=== PATIENT | female | born 1995 | race Caucasian/White ===

== ENCOUNTER 2018-05-25 03:02 | Emergency (ER) | payer OTHER ==
[~2018-05-25] VITALS: Ht 160 cm; Wt 59.0 kg
--- NOTE | ~2018-05-25 | EKG ---
[place], [place] ELECTROCARDIOGRAM REPORT NAME: BRANDEN SAXENA UNIT #: [id number] ROOM: DOCTOR: EPIPHANY DRAFT REPORT BIRTHDATE: [birth year] [facility] Test Date: 2018-05-25 Test Time: 06:44:13 Pat Name: BRANDEN SAXENA Department: Room: Gender: F Certified [employer] Administrator: Nereida Flynn : 1995 Requested By: DORI SHARMA Order Number: [id number] Reading MD: Ellis Peterson MD Measurements Intervals [place] Rate: 62 P: 71 [place]: 125 QRS: 91 QRSD: 94 T: 53 QT: 407 QTc: 414 Interpretive Statements Sinus rhythm Consider right ventricular hypertrophy No previous ECG available for comparison Electronically Signed On 05-25-2018 10:51:50 PST by Ellis Peterson MD CM:EKGRPT:ELECTROCARDIOGRAM REPORT [id number] DORI ZALDIVAR DRAFT REPORT DORI SHARMA DO
--- NOTE | ~2018-05-25 | EKG ---
[place], [place] ELECTROCARDIOGRAM REPORT NAME: BRANDEN SAXENA UNIT #: [id number] ROOM: DOCTOR: EPIPHANY DRAFT REPORT BIRTHDATE: [birth year] [facility] Test Date: 2018-05-25 Test Time: 03:08:26 Pat Name: BRANDEN SAXENA Department: Room: Gender: F [employer] Equipment Operator: Nereida Flynn : 1995 Requested By: DORI SHARMA Order Number: [id number] Reading MD: Ellis Peterson MD Measurements Intervals [place] Rate: 95 P: 86 [place]: 110 QRS: 105 QRSD: 94 T: 38 QT: 349 QTc: 439 Interpretive Statements Sinus rhythm Borderline short [place] interval Right atrial enlargement Consider right ventricular hypertrophy No previous ECG available for comparison Electronically Signed On 05-25-2018 10:51:47 PST by Ellis Peterson MD CM:EKGRPT:ELECTROCARDIOGRAM REPORT [id number] DROI ZALDIVAR DRAFT REPORT DORI SHARMA DO
[~2018-05-25 03:02] MED LIST: MOTRIN800 MG PO
[2018-05-25 03:23] LABS: BASO # 0.1 10*3/uL (0.0-0.1); BASO % 0.5 % (0.0-1.0); EOS # 0.1 10*3/uL (0.0-0.4); EOS % 1.3 % (1.0-4.0); HEMATOCRIT 44.7 % (37.0-47.0); LYMPH % 30.6 % (27.0-41.0); MEAN CELL VOLUME 88.2 fl (81.0-99.0); MEAN CORPUSCULAR HGB 31.6 pg (27.0-31.0); MEAN CORPUSCULAR HGB CONC 35.8 g/dl (33.0-37.0); MEAN PLATELET VOLUME 11.1 fl (9.6-12.3); MONO # 0.8 10*3/uL (0.1-1.0); MONO % 8.1 % (3.0-9.0); NEUT # 5.8 10*3/uL (2.3-7.9); NEUT % 59.2 % (47.0-73.0); PLATELET COUNT AUTOMATED 245 10*3/uL (130-400); RED BLOOD COUNT 5.07 10*6/uL (4.10-5.10); RED CELL DISTRI WIDTH 11.9 % (0-14.5); WHITE BLOOD COUNT 9.8 10*3/uL (4.8-10.8)
[2018-05-25 03:34] LABS: ACT PARTIAL THROMBO TIME 25.8 SECONDS (20.8-31.5); INTERNATIONAL NORM RATIO 0.9 (2.0-3.5)
[2018-05-25 03:41] LABS: ALBUMIN 4.7 gm/dl (3.1-4.5); ALKALINE PHOSPHATASE 104 U/L (45-117); BUN 14 mg/dl (7-24); CHLORIDE 103 mmol/L (98-107); CREATININE 0.97 mg/dL (0.55-1.02); POTASSIUM 3.4 mmol/L (3.5-5.1); SGOT/AST 20 IU/L (3-35); SGPT/ALT 20 U/L (12-78); SODIUM 140 mmol/L (136-145); TOTAL PROTEIN 8.3 gm/dL (6.4-8.2)
[2018-05-25 03:43] LABS: TROPONIN I < 0.015 ng/ml (<0.045)
[2018-05-25 06:53] VITALS: BP 104/62
== END 2018-05-25 07:09 | disposition home or self-care (01) ==
LOC: ED 03:02
PROVIDERS: Emergency Medicine
DX: R07.89 Other chest pain (principal); F17.200 Nicotine dependence, unspecified, uncomplicated

== ENCOUNTER 2019-07-11 17:30 | Emergency (ER) | payer OTHER ==
[~2019-07-11] VITALS: Ht 157.4 cm; Wt 48.5 kg
[2019-07-11 17:40] VITALS: BP 118/81
[2019-07-11] MEDS ORDERED: PROAIR HFA8.5 GM INH (19:53)
== END 2019-07-11 19:54 | disposition home or self-care (01) ==
LOC: ED 17:30
DX: R05 Cough (principal); R19.7 Diarrhea, unspecified; F17.200 Nicotine dependence, unspecified, uncomplicated; Z88.0 Allergy status to penicillin